=== PATIENT | male | born 1965 | race African-American/Black ===

== ENCOUNTER 2023-12-17 13:10 | Emergency (ER) | payer MEDICAID, OTHER ==
[~2023-12-17] VITALS: Ht 182.9 cm; Wt 84.0 kg
[2023-12-17 13:13] VITALS: O2SAT 96
[2023-12-17] MEDS: DIPHENHYDRAMINE 50MG/ML VIAL IV ONE (13:44)
[2023-12-17] MEDS: ONDANSETRON HCL 4MG/2ML INJ IV ONE (13:44)
[2023-12-17] MEDS: DEXAMETHASONE 4MG/ML 1ML VIAL IV ONE (13:44)
[2023-12-17 14:15] LABS: BASOPHILS % 0.6 % (0.0-2.0); EOSINOPHILS % 1.2 % (0.0-5.0); HEMATOCRIT. 48.5 % (42.0-52.0); HEMOGLOBIN. 16.5 g/dL (14.0-18.0); LYMPHOCYTES % 35.3 % (20.0-50.0); MEAN CORPUSCULAR HEMOGLOBIN 30.6 pg (28.0-32.0); MEAN CORPUSCULAR VOLUME 89.8 fL (80.0-94.0); MEAN PLATELET VOLUME 8.3 fl (7.4-10.4); MONOCYTES % 4.5 % (2.0-8.0); NEUTROPHILS % 58.4 % (40.0-76.0); PLATELET 231 x1000/uL (130-400); RED BLOOD CELL COUNT 5.41 mill/uL (4.7-6.1); RED CELL DISTRIBUTION WIDTH 13.6 % (11.6-14.6); WHITE BLOOD COUNT 7.7 x1000/uL (4.5-11.0)
[2023-12-17 14:22] LABS: CARBON DIOXIDE 21 mEq/L (21-32); CHLORIDE 110 mEq/L (98-107); POTASSIUM 3.6 mEq/L (3.5-5.1); SODIUM 140 mEq/L (136-145)
[2023-12-17 14:27] LABS: CREATININE 1.6 mg/dL (0.6-1.3); GLUCOSE 189 mg/dL (70-105); UREA NITROGEN BLOOD 10 mg/dL (9-23)
[2023-12-17 14:31] LABS: TROPONIN I HIGH SENSITIVITY 7 ng/L (3.0-53)
[2023-12-17 16:02] LABS: TROPONIN I HIGH SENSITIVITY 8 ng/L (3.0-53)
[2023-12-17 17:24] LABS: CALCIUM 9.3 mg/dL (8.7-10.4)
[2023-12-17 18:52] VITALS: BP 126/73; PULSE 56; RESP 12; TEMP 98.2
== END 2023-12-17 19:04 | disposition home or self-care (01) ==
LOC: ER 13:55
DX: R06.02 Shortness of breath (principal); T50.905A Adverse effect of unspecified drugs, medicaments and biological substances, initial encounter; I10 Essential (primary) hypertension; X58.XXXA Exposure to other specified factors, initial encounter
CPT/HCPCS: 80048; 83880; 85025; 84484; 36415; 71045; 93005; 96374; 96375; 99285; J1100; J1200; J2405; Z7610 ×2